=== PATIENT | male | born 1980 | race Caucasian/White ===

== ENCOUNTER 2020-06-28 20:19 | Emergency (ER) | payer OTHER ==
[~2020-06-28] VITALS: Ht 188 cm; Wt 72.8 kg
[~2020-06-28 20:19] MED LIST: CIPRO500 MG PO; NORCO 5-325 TA1 EACH PO
--- NOTE | 2020-06-29 19:28 | EKG ---
[facility] [address] [facility] [place], [place] [address] Signed Normal sinus rhythm Normal ECG When compared with ECG of 10-JUN-2018 14:07, No significant change was found Confirmed by RAFI SHARIF DO ([id number]) on 06/29/2020 7:28:46 PM Electronically Signed By: RAFI SHARIF DO 06/29/20 1928 PATIENT NAME: AYSHA SHELDON Electrocardiogram DATE OF : 80 PHYSICIAN: RAFI SHARIF DO REPORT #: [id number] REPORT IS CONFIDENTIAL AND NOT TO BE RELEASED WITHOUT AUTHORIZATION
== END 2020-06-28 21:55 | disposition home or self-care (01) ==
LOC: ED 20:19
DX: R00.0 Tachycardia, unspecified (principal); F17.200 Nicotine dependence, unspecified, uncomplicated
CPT/HCPCS: 80053; 83735; 84443; 84484; 85025; 93005; 93010; 99285-25

== ENCOUNTER 2021-12-28 06:55 | Day surgery (SDC) | payer OTHER ==
[~2021-12-28] VITALS: Ht 188 cm; Wt 78.2 kg
[2021-12-28] MEDS ORDERED: HYDROCODON-ACE1 EA10 PO (09:14)
--- NOTE | 2021-12-28 09:22 | NUR ---
12/28/21 0922 Gisella Madera 0916 PATIENT ARRIVES TO PACU AWAKE BUT DROWSY. RESP EVEN AND UNLABORED, ROOM AIR SATS >95%. PATIENT DENIES PAIN OR NAUSEA. 0920 PATIENT SITTING UP DRINKING WATER.
--- NOTE | 2021-12-28 10:25 | OR ---
[facility] [address] [place], [place] [address] Signed DATE OF OPERATION: 12/28/2021 SURGEON: Joanna Scales MD PREOPERATIVE DIAGNOSIS: Carpal tunnel syndrome, left. POSTOPERATIVE DIAGNOSIS: Carpal tunnel syndrome, left. PROCEDURE PERFORMED: Left carpal tunnel release. PIERCER OPERATOR: None. ANESTHESIA: Kalia block. TOURNIQUET TIME: 20 minutes. BRIEF HISTORY: Aysha is a 41-year-old gentleman with progressive worsening numbness and tingling in his hand. He had undergone nerve conduction studies with positive results. Risks and benefits of the operative treatment discussed with him. He elected to proceed. DESCRIPTION OF PROCEDURE: Once consent was obtained, he was taken to the operating room. After adequate anesthesia, he was left on the day surgery bed and hand table was brought in. The arm was then prepped and draped in a standard sterile fashion. A 1.5 cm incision was made in the distal wrist crease carried through skin and subcutaneous tissue. This was then carried down to the palmaris longus, which was identified, retracted, and protected. Transverse carpal ligament was identified and dissected free of overlying soft tissue under loupe magnification. The transverse carpal ligament was then transected using tenotomy scissors proximally about a centimeter and half and distal to the distal extent of the ligament. This was palpated using a Gwynn and found to be completely released. The wound was then copiously irrigated with normal saline, closed with 3-0 nylon and injected with 7 mL of 0.25% Marcaine plain. The wound was then dressed with bacitracin, Adaptic, 4x8's, and gauze. He tolerated the procedure well. All sponge, needle, and Electronically Signed By: JOANNA SCALES MD 12/28/21 1025 PATIENT NAME: AYSHA SHELDON OPERATIVE REPORT DATE OF : 80 REPORT #: [id number] PHYSICIAN: JOANNA SCALES MD PCP: BI ALEJANDRO REPORT IS CONFIDENTIAL AND NOT TO BE RELEASED WITHOUT AUTHORIZATION [address] [address] Signed instrument counts were correct. Joanna Scales MD BA/MODL /[id number] Copies: ~ Electronically Signed By: JOANNA SCALES MD 12/28/21 1025 PATIENT NAME: AYSHA SHELDON OPERATIVE REPORT DATE OF : 80 REPORT #: [id number] PHYSICIAN: JOANNA SCALES MD PCP: IB ALEJANDRO JET HANDLER REPORT IS CONFIDENTIAL AND NOT TO BE RELEASED WITHOUT AUTHORIZATION
== END 2021-12-28 09:40 | disposition home or self-care (01) ==
LOC: DS 06:55
PROVIDERS: ATTEND Specialist
PROC: 01N50ZZ Release Median Nerve, Open Approach (ICD-10-PCS; principal; 2021-12-28 09:10)
DX: G56.02 Carpal tunnel syndrome, left upper limb (principal); Z87.891 Personal history of nicotine dependence
CPT/HCPCS: J0690; J2250; J2405; J2704; J3010; J7121

== ENCOUNTER 2024-04-02 14:06 | Emergency (ER) | payer OTHER ==
[~2024-04-02] VITALS: Ht 188 cm; Wt 79.0 kg
[~2024-04-02 14:06] MED LIST changes: +HYDROCODON-ACE1 EA10 PO
[2024-04-02] MEDS ORDERED: DIPHTH,PERTUSS(ACELL),TET VAC 0.5 ML SYRINGE IM ONE (14:45)
[2024-04-02 15:39] VITALS: BP 150/82
== END 2024-04-02 15:37 | disposition home or self-care (01) ==
LOC: ED 14:06
DX: S81.811A Laceration without foreign body, right lower leg, initial encounter (principal); F17.200 Nicotine dependence, unspecified, uncomplicated; W26.8XXA Contact with other sharp object(s), not elsewhere classified, initial encounter
CPT/HCPCS: 12002; 90471; 90715; 99282-25